=== PATIENT | male | born 1970 | race Caucasian/White ===

== ENCOUNTER 2018-12-05 08:12 | Outpatient (CLI) | payer BC, SELFPAY ==
[2018-12-05 09:50] LABS: ALT 32 U/L (12-78); AST 20 U/L (15-37); Anion Gap 9.4 mmol/L (3-11); BUN 17 mg/dL (7-18); CO2 26.6 mmol/L (21.0-32.0); CREATININE 0.87 mg/dL (0.70-1.30); Calcium 8.9 mg/dL (8.5-10.1); Chloride 102 mmol/L (98-107); Cholesterol 231 mg/dL (50-200); Glucose 98 mg/dL (70-100); HDL Cholesterol 47 mg/dL (40-60); LDL CHOLESTEROL 167 mg/dL (<100); Sodium 138 mmol/L (136-145); Triglyceride 67 mg/dL (30-150)
== END 2018-12-05 08:32 ==
PROVIDERS: PCP Nurse Practitioner Family; Visit Provider Nurse Practitioner Family
DX: Z00.00 Encounter for general adult medical examination without abnormal findings (principal); Z13.220 Encounter for screening for lipoid disorders; Z13.228 Encounter for screening for other metabolic disorders
CPT/HCPCS: 36415; 80048; 80061; 83721; 84450; 84460

== ENCOUNTER 2021-11-14 13:21 | Outpatient (REF) | payer BC, SELFPAY ==
[2021-11-14 15:04] LABS: ALT 30 U/L (16-63); AST 19 U/L (15-37); Anion Gap 7.8 mmol/L (3-11); BUN 11 mg/dL (7-18); CO2 28.2 mmol/L (21.0-32.0); CREATININE 0.8 mg/dL (0.70-1.30); Calcium 8.8 mg/dL (8.5-10.1); Calculated LDL 164 mg/dL (<100); Chloride 102 mmol/L (98-107); Cholesterol 227 mg/dL (<200); Glucose 103 mg/dL (74-106); HDL Cholesterol 50 mg/dL (40-60); Potassium 4.8 mmol/L (3.5-5.1); Sodium 138 mmol/L (136-145); Triglyceride 65 mg/dL (<150)
[2021-11-14 22:40] LABS: PSA, Screening 1.1 ng/mL (0.0-3.5)
== END 2021-11-14 13:22 | disposition home or self-care (01) ==
LOC: NCHCN 13:21
PROVIDERS: PCP Nurse Practitioner Family; Visit Provider Nurse Practitioner Family
DX: G47.33 Obstructive sleep apnea (adult) (pediatric) (principal); Z72.0 Tobacco use; Z12.5 Encounter for screening for malignant neoplasm of prostate
CPT/HCPCS: 80048; 80061; 84153; 84450; 84460

== ENCOUNTER 2023-01-08 16:02 | Outpatient (REF) | payer OTHER, SELFPAY ==
[2023-01-08 15:33] LABS: HCT 43.6 % (40.0-50.0); MCH 31.1 pg (27.0-33.0); MCHC 34.4 % (32.0-36.0); MCV 90 fL (80-95); MPV 9.5 fL (8.0-11.0); Platelet Count 319 10^3/uL (130-400); RBC 4.83 10^6/uL (4.36-5.78); RDW 11.4 % (11.8-14.1); RDW-SD 37.9 fL; WBC 7.68 10^3/uL (4.4-10.8)
[2023-01-08 15:50] LABS: ALT 48 U/L (16-63); AST 31 U/L (15-37); Albumin 3.9 g/dL (3.4-5.0); Alkaline Phosphatase 65 U/L (46-116); Anion Gap 7.3 mmol/L (3-11); BUN 16 mg/dL (7-18); Bilirubin, Total 0.4 mg/dL (0.2-1.0); CO2 28.7 mmol/L (21.0-32.0); CREATININE 0.8 mg/dL (0.70-1.30); Calculated LDL 174 mg/dL (<100); Chloride 103 mmol/L (98-107); Cholesterol 247 mg/dL (<200); Estimated GFR 107.15 (mL/min/1.73m2); Glucose 107 mg/dL (74-106); HDL Cholesterol 60 mg/dL (40-60); Potassium 4.2 mmol/L (3.5-5.1); Sodium 139 mmol/L (136-145); Triglyceride 68 mg/dL (<150)
== END 2023-01-08 16:03 | disposition home or self-care (01) ==
LOC: NCHCN 16:02
PROVIDERS: PCP Nurse Practitioner Family; Visit Provider Nurse Practitioner Family
DX: Z00.00 Encounter for general adult medical examination without abnormal findings (principal); Z13.0 Encounter for screening for diseases of the blood and blood-forming organs and certain disorders involving the immune mechanism; Z13.220 Encounter for screening for lipoid disorders; Z13.228 Encounter for screening for other metabolic disorders; Z12.5 Encounter for screening for malignant neoplasm of prostate
CPT/HCPCS: 80053; 80061; 84153; 85027